=== PATIENT | male | born 1940 | race Two or more races ===

== ENCOUNTER 2019-01-13 02:02 | Inpatient (IN) | payer OTHER ==
[~2019-01-13] VITALS: Ht 172.7 cm; Wt 82.3 kg
[2019-01-13] MEDS ORDERED: SODIUM CHLORIDE 0.9% 500 ML IVB ONE (02:36)
[2019-01-13] MEDS ORDERED: MORPHINE SULFATE 4 MG/ML SYR/VIAL IV ONE (02:45)
[2019-01-13] MEDS ORDERED: ONDANSETRON HCL 4 MG/2 ML VIAL IV ONE (02:45)
[2019-01-13 02:59] LABS: Basophils # (auto) 0 uL; Basophils % (auto) 0.3 % (0.0-2.0); Eosinophils # (auto) 0 uL; Eosinophils % (auto) 0.1 % (0.0-7.0); Hematocrit 46.2 % (41.0-53.0); Lymphocytes # (auto) 0.9 uL; Lymphocytes % (auto) 6.5 % (10.0-50.0); Mean Corpuscular Hemoglobin 29.1 pg (28.0-32.0); Mean Corpuscular Hgb Conc. 32.5 g/dL (32.0-36.0); Mean Corpuscular Volume 89.6 fL (80.0-100.0); Monocytes # (auto) 0.6 uL; Monocytes % (auto) 4.1 % (0.0-12.0); Neutrophils # (auto) 12.9 uL; Nucleated Red Blood Cells % 0.1 %; Platelet Count (auto) 308 10^3/uL (140-450); Red Blood Cells 5.16 10^6/uL (4.5-5.90); White Blood Cell 14.5 10^3/uL (4.4-10.8)
[2019-01-13 03:19] LABS: Albumin 3.2 g/dL (3.4-5.0); BUN/Creatinine Ratio 11.8; Calcium 8.4 mg/dL (8.5-10.1); Potassium 3.5 mmol/L (3.5-5.1)
[2019-01-13 03:22] LABS: Bilirubin, Total 0.4 mg/dL (0.2-1.0); Total Protein 7.9 g/dL (6.4-8.2)
[2019-01-13 04:08] LABS: Urine Bacteria MANY /hpf (None Seen); Urine Blood 1+ /uL (Negative); Urine Specific Gravity 1.014 (1.001-1.035); Urine WBC 129 /hpf (0 - 3); Urine WBC Clumps PRESENT /hpf (None Seen)
[2019-01-13] MEDS ORDERED: CEFTRIAXONE SODIUM 2 GM in D5W 5% 50 ML IV ONE (06:00)
[2019-01-13] MEDS ORDERED: cefTRIAXone 1GM/50ML D5W 50 ML IV ONE ×2 (06:30)
[2019-01-13] MEDS ORDERED: MORPHINE SULF INJ 2 MG/ML SYRINGE 1ML IV PRN ×2 (08:15)
[2019-01-13] MEDS: SODIUM CHLORIDE 0.9% 1,000 ML IV SCH ×5 (08:15→16:12)
[2019-01-13] MEDS ORDERED: NITROGLYCERIN 0.4 MG SL TAB SL PRN (08:15)
[2019-01-13] MEDS ORDERED: ONDANSETRON HCL 4 MG/2 ML VIAL IV PRN (08:15)
[2019-01-13] MEDS ORDERED: ACETAMINOPHEN 500 MG TAB PO PRN (08:15)
[2019-01-13] MEDS ORDERED: DEXTROSE (50%) 50ML SYRG IV PRN ×2 (08:30→11:15)
[2019-01-13 09:16] LABS: Lactic Acid w/Reflex 3.4 mmol/L (0.4-2.0)
[2019-01-13] MEDS ORDERED: ENOXAPARIN SOD 40 MG/0.4 ML SYRINGE SC SCH (10:00)
[2019-01-13] MEDS: NYSTATIN TOPICAL CREAM 15GM TOP SCH ×2 (10:00→21:51)
[2019-01-13 10:45] VITALS: BP 138/79
[2019-01-13] MEDS: FAMOTIDINE (10MG/ML) 2ML VL IV SCH ×2 (10:58→21:52)
--- NOTE | 2019-01-13 11:03 | NUR ---
Wong POLANCO paged regarding BS 476, awaiting to call back.
--- NOTE | 2019-01-13 11:04 | NUR ---
Received a new order from Wong MARCOS, noted and carried out.
[2019-01-13] MEDS ORDERED: INSULIN LANTUS (GLARGINE) 1 /0.01ml (100units/ml) SC ONE (11:15)
[2019-01-13] MEDS ORDERED: ACCU-CHEK COMFORT CURVE STRIP VI SCH (11:30)
[2019-01-13] MEDS ORDERED: InsuLIN REG 1unit/0.01ml Soln (100units/ml) SC SCH (11:30)
--- NOTE | 2019-01-13 11:40 | NUR ---
WOUND CARE NOTE: Wound care consult received from nursing. Patient is a 78 yo male admitted for sepsis. Patient with a history of HTN, Diabetes, Parkinson's and previous pressure injury to sacrum. Patient seen with bedside RNChun. Patient is alert and denies pain. Last Zoltan score is 12. Patient states he has had previous wound to sacrum/coccyx, but unknown of stage. Skin is red/pink scar with multiple multiple small areas of deep purple discoloration measuring no larger that 1x1cm. Patient admitted with a linares and noted to have some moisture associated dermatitis to bilateral groins. Patient positioned to the right after assessment. RECOMMENDATIONS: Turn q2hrs; Dietary consult; Specialty mattress; Nursing to cleanse sacrum/coccyx area with mild soap and water, pat dry, apply thin layer of ZGUARD, cover with OPTIFOAM GENTLE dressing, change Q3days/PRN; wound care team to follow. Addendum: 01/13/19 at 1500 by EDMUNDO WOLFE RN Amended: Links added.
[2019-01-13] MEDS: ACCU-CHEK COMFORT CURVE STRIP VI SCH ×3 (11:41→19:53)
[2019-01-13] MEDS: InsuLIN REG 1unit/0.01ml Soln (100units/ml) SC SCH ×3 (11:41→19:53)
--- NOTE | 2019-01-13 11:45 | NUR ---
Telemetry admit from ER [facility] admitted to Telemetry unit after SBAR received. Patient oriented to JACKIE PERERA, primary RN, unit, room, bed, and unit policies regarding patient care and visiting hours. Patient now on continuous telemetry monitoring, tele box # 37 and telemetry reading on arrival to unit is . Patient placed on bedside oxygen, weighed by bed scale and encouraged to call if they need something. All questions and concerns addressed, patient verbalized understanding.
--- NOTE | 2019-01-13 13:59 | NUR ---
Wong POLANCO made aware of patient has DVT to right leg.
[2019-01-13] MEDS ORDERED: GASTROGRAFIN 30 ML SOL ONE (15:49)
[2019-01-13] MEDS ORDERED: IOHEXOL 300 MG/ML 100ML BOTTLE IJ ONE (15:50)
[2019-01-13] MEDS ORDERED: IOHEXOL 350 MG/ML 100ML IJ ONE (15:52)
[2019-01-13 17:19] VITALS: BP 130/72
[2019-01-13] MEDS: HYDROcodone-ACET 5/325MG TAB PO PRN ×2 (17:42→23:48)
--- NOTE | 2019-01-13 19:40 | NUR ---
OPENING NOTE Received report from day shift RN. Patient is A&O X's 4 with no s/s of distress noted. Patient reports no pain at this time. Educated patient on POC and to use call light when in need of assistance. Patient verbalized understanding. Bed is in lowest/locked position with side rails up X's 2 and call light is within reach of patient. Will continue to monitor for changes and round hourly/PRN.
[2019-01-13 21:00] VITALS: BP 117/71
[2019-01-13] MEDS: ENOXAPARIN SOD 100 MG/1 ML SYRINGE SC SCH (21:52)
--- NOTE | 2019-01-14 | NUR ---
PAGED HOSPITALIST Paged hospitalist per protocol. Blood sugar 58.
--- NOTE | 2019-01-14 | NUR ---
ROUNDS Patient's blood sugar is at 58. Patient is asymptomatic. Patient is A&O X's 4 with no s/s of distress. Patient drinking cranberry juice at this time. Will continue to monitor patient.
--- NOTE | 2019-01-14 00:01 | NUR ---
blood sugar recheck After 8 oz of cranberry juice, patient's blood sugar is at 73. Will inform hospitalist
[2019-01-14] MEDS: ACCU-CHEK COMFORT CURVE STRIP VI SCH ×4 (00:03→12:25)
[2019-01-14] MEDS: SODIUM CHLORIDE 0.9% 1,000 ML IV SCH ×2 (01:45→13:47)
[2019-01-14] MEDS: InsuLIN REG 1unit/0.01ml Soln (100units/ml) SC SCH ×4 (03:50→12:26)
[2019-01-14 05:00] VITALS: BP 137/87
[2019-01-14] MEDS: HYDROcodone-ACET 5/325MG TAB PO PRN ×2 (06:13→12:10)
[2019-01-14] MEDS ORDERED: INSULIN LANTUS (GLARGINE) 1 /0.01ml (100units/ml) SC SCH ×2 (07:00)
--- NOTE | 2019-01-14 07:45 | NUR ---
Opening Shift Note Assumed care of patient, alert and oriented x 4, no S/S of distress/SOB or pain. IV 20g to left FA patent and intact, running NS @ 100 ml/hr. Giles catheter draining to gravity noted at bedside with clear, straw colored urine. Bed in lowest locked position with side rails up x 2 for safety. Dressing changed on sacrum after patient bowel movement. Instructed on POC and to call for assist PRN, will continue to monitor for changes Q1hr and PRN. Signed: 01/14/19 at 1133 by SN YU <Co-Signature Required> Co-Signed: 01/14/19 at 1133 by Camila Mckenzie RN
[2019-01-14 07:59] LABS: Basophils # (auto) 0.1 uL; Basophils % (auto) 1.1 % (0.0-2.0); Eosinophils # (auto) 0.4 uL; Hematocrit 35.4 % (41.0-53.0); Hemoglobin 11.6 g/dL (13.5-17.5); Lymphocytes % (auto) 26.2 % (10.0-50.0); Mean Corpuscular Hemoglobin 29.3 pg (28.0-32.0); Mean Corpuscular Hgb Conc. 32.9 g/dL (32.0-36.0); Monocytes # (auto) 0.6 uL; Monocytes % (auto) 8.6 % (0.0-12.0); Neutrophils # (auto) 4.5 uL; Neutrophils % (auto) 59.1 % (37.0-80.0); Platelet Count (auto) 244 10^3/uL (140-450); Red Blood Cells 3.97 10^6/uL (4.5-5.90); Red Cell Distribution Width 13.7 % (11.8-14.3); White Blood Cell 7.5 10^3/uL (4.4-10.8)
[2019-01-14 08:14] VITALS: BP 148/91
[2019-01-14 08:14] LABS: Potassium 3.7 mmol/L (3.5-5.1)
[2019-01-14 08:22] LABS: Albumin 2.6 g/dL (3.4-5.0); Bilirubin, Total 0.3 mg/dL (0.2-1.0); Total Protein 6.3 g/dL (6.4-8.2)
[2019-01-14] MEDS ORDERED: cefTRIAXone 1GM/50ML D5W 50 ML IV SCH (09:00)
[2019-01-14] MEDS: ENOXAPARIN SOD 100 MG/1 ML SYRINGE SC SCH (10:45)
[2019-01-14] MEDS: FAMOTIDINE (10MG/ML) 2ML VL IV SCH (10:46)
--- NOTE | 2019-01-14 11:15 | NUR ---
Urology Urologist Yoselyn AMAYA at bedside discussing POC with patient for urology follow up. Signed: 01/14/19 at 1135 by SN YU <Co-Signature Required> Co-Signed: 01/14/19 at 1135 by Camila Mckenzie RN
--- NOTE | 2019-01-14 11:43 | NUR ---
NUTRITION CONSULT/ASSESSMENT NOTES Please refer to link notes of nutrition screen form filed under the intervention section of the plan of care for further details. Est. Needs: 1650 kcal to 2050 kcal (20-25 kcal/kgBW), 82 gms to 107 gms pro (1.0-1.3 gms/kgBW for wound healing). Will continue to monitor pertinent labs and reassess nutrient need prn Thank you for this consult. Addendum: 01/14/19 at [address] Amended: Links added.
[2019-01-14 12:50] VITALS: BP 153/94
[2019-01-14] MEDS: NYSTATIN TOPICAL CREAM 15GM TOP SCH (13:47)
--- NOTE | 2019-01-14 13:59 | NUR ---
I faxed home health order to [facility].
--- NOTE | 2019-01-14 14:45 | NUR ---
Per patient, he was previously on [facility]. Spoke to Guillermina with [facility], informed patient is discharged, verbalized understanding. Faxed requested information to [facility], awaiting return call with transportation and parts picker time. Spoke to Jessenia Wilson, social work instructor, informed of the above, verbalized understanding. Patient updated on plan of care, verbalized understanding.
[2019-01-14 15:09] VITALS: BP 133/84
--- NOTE | 2019-01-14 15:15 | NUR ---
Call received from Joy with [facility], informed [facility] will be picking patient up between 1600 and 1700. Patient and Jessenia Wilson, Woods Overseer informed of above, both verbalized understanding.
--- NOTE | 2019-01-14 16:11 | NUR ---
assessment Patient is a 78 year old male who is alert and oriented. Prior to admission patient informed me he lived at a room and board found by [facility] and pays 1,800.00 per month. Per patient he rents a room only. Per patient he wants to return to home on discharge. I asked patient if he would like me to find him a board and care for that weeks. Patient informed me he will stay at his room and board for now. Camila RANEGL and I informed patient of the type of care he needs at home. Patient verbalized understanding and agreed to return home to his room on discharge. Per MD order resume [facility]. Patient agrees to resumption of Hospice. MD order has been sent to [facility]. Transport set up for between 1600 and 1700 today post discharge. Addendum: 01/14/19 at 1616 by Jessenia TELLO Amended: Links added.
--- NOTE | 2019-01-14 16:14 | NUR ---
REFINERY OPERATOR HELPER Jessenia, Business Education Teacher at bedside discussing patient's discharge plan. Per patient, he would like to return to the previous living arrangements. Jessenia informed patient of his rights and supplied him with resources along with her business card. Patient verbalized understanding.
--- NOTE | 2019-01-14 16:49 | NUR ---
Discharge instructions given as ordered. Patient discharged back to the residence where he states he rents a room. [facility] to resume care. Encourage to follow up with PMD as instructed. All questions and concerns addressed. Patient verbalized understanding. Medication reconciliation form completed and copy given to patient. IV removed with catheter intact, pressure dressing applied, per order, patient discharged with Giles catheter. Telemetry unit returned to ICU. Patient transported via gurney by [facility] [employer] with all personal belongings, accompanied by transport staff. No distress noted at time of departure.
[2019-01-14 16:58] VITALS: BP 137/86
--- NOTE | 2019-01-15 15:26 | NUR ---
[facility] Eliquis 5 mg po BID #90 (per )) is called in to [facility] pharmacy at [phone] as per patient's request( [phone]).
== END 2019-01-14 17:00 | disposition hospice, home (50) | DRG 699 ==
LOC: EDBD 02:02 → ER 02:09 → TELE 08:07 → TELE-CENTR 09:51
PROVIDERS: ADMIT Nurse Practitioner Acute Care; ATTEND Hospitalist
DX: T83.091A Other mechanical complication of indwelling urethral catheter, initial encounter (principal); I82.431 Acute embolism and thrombosis of right popliteal vein; E87.2 Acidosis; E44.1 Mild protein-calorie malnutrition; J98.11 Atelectasis; N39.0 Urinary tract infection, site not specified; R65.10 Systemic inflammatory response syndrome (SIRS) of non-infectious origin without acute organ dysfunction; I82.411 Acute embolism and thrombosis of right femoral vein; E11.65 Type 2 diabetes mellitus with hyperglycemia; I10 Essential (primary) hypertension; G20 Parkinson's disease; F17.210 Nicotine dependence, cigarettes, uncomplicated; L89.159 Pressure ulcer of sacral region, unspecified stage; L25.9 Unspecified contact dermatitis, unspecified cause; K44.9 Diaphragmatic hernia without obstruction or gangrene; Y73.8 Miscellaneous gastroenterology and urology devices associated with adverse incidents, not elsewhere classified; N13.9 Obstructive and reflux uropathy, unspecified; Y92.89 Other specified places as the place of occurrence of the external cause; Z79.4 Long term (current) use of insulin; Z80.3 Family history of malignant neoplasm of breast; Z79.01 Long term (current) use of anticoagulants; Z68.27 Body mass index [BMI] 27.0-27.9, adult; Z79.899 Other long term (current) drug therapy
CPT/HCPCS: 36415; 51702; 71045; 71260; 74177; 80053; 80061; 81001; 82962; 83036; 83605; 84443; 85025; 85379; 85652; 87086; 87088; 87186; 93306; 93970; 96361; 96365; 96366; 96375; G0378; J0696; J1815; J2405; J3490; J7060

== ENCOUNTER 2019-04-03 01:01 | Emergency (ER) | payer OTHER ==
[~2019-04-03] VITALS: Ht 175.3 cm; Wt 86.2 kg
[~2019-04-03 01:01] MED LIST: APIX5TAB PO; BENA40TA7 PO; CARB25TA3 PO; FENT25DI TD; GABA300C10 PO; HYDR-4798 PO; INSU70IN3 SC; LEVO500T21 PO; LORA0.5T12 PO; QUET50TA25 PO; SERT-274 PO; TAMS0.4C36 PO; [UNRECOGNIZED DRUG - CODE]
[2019-04-03 04:07] LABS: Urine Bacteria MANY /hpf (None Seen); Urine Blood 2+ /uL (Negative); Urine Mucus FEW (None Seen); Urine WBC 522 /hpf (0 - 3); Urine WBC Clumps PRESENT /hpf (None Seen)
[2019-04-03] MEDS ORDERED: LIDOCAINE 2% (LOCAL ANESTH.) PF 5ml SDV IJ ONE (06:45)
[2019-04-03] MEDS ORDERED: cefTRIAXone W LIDOCAINE 1 GM IM IM ONE (06:45)
[2019-04-03] MEDS ORDERED: cefTRIAXone SOD 1,000 MG VL ONE (06:48)
[2019-04-03] MEDS ORDERED: KETOROLAC TROMETH 60MG/2ML VIAL ONE (09:33)
[2019-04-03] MEDS ORDERED: KETOROLAC TROMETH 60MG/2ML VIAL IM ONE (09:45)
[2019-04-03 12:02] VITALS: BP 110/62
== END 2019-04-03 11:56 | disposition home or self-care (01) ==
LOC: ER 01:01 → EDBD 01:01 → ER 06:05
DX: K52.9 Noninfective gastroenteritis and colitis, unspecified (principal); E11.9 Type 2 diabetes mellitus without complications; I10 Essential (primary) hypertension; F17.210 Nicotine dependence, cigarettes, uncomplicated
CPT/HCPCS: 81001; 96372; 99283; J0696; J1885; J2001

== ENCOUNTER 2019-06-28 04:01 | Emergency (ER) | payer OTHER ==
[~2019-06-28] VITALS: Ht 162.6 cm; Wt 54.4 kg
[~2019-06-28 04:01] MED LIST changes: -LEVO500T21 PO; -[UNRECOGNIZED DRUG - CODE]
[2019-06-28] MEDS ORDERED: HYDROcodone-ACET 10/325MG TAB PO ONE (08:45)
[2019-06-28 08:58] LABS: Urine Amorphous Crystal FEW /hpf (None Seen); Urine Bacteria MANY /hpf (None Seen); Urine Blood 2+ /uL (Negative); Urine Budding Yeast FEW /hpf (None Seen); Urine Mucus FEW (None Seen); Urine Specific Gravity 1.018 (1.001-1.035); Urine WBC 1261 /hpf (0 - 3); Urine WBC Clumps PRESENT /hpf (None Seen)
[2019-06-28] MEDS ORDERED: cefTRIAXone 1GM/50ML D5W 50 ML IV ONE (09:30)
[2019-06-28 11:55] VITALS: BP 151/91
[2019-06-28] MEDS ORDERED: HYDROcodone-ACET 5/325MG TAB PO ONE (12:15)
== END 2019-06-28 14:13 | disposition home or self-care (01) ==
LOC: ER 04:01
DX: N39.0 Urinary tract infection, site not specified (principal); G20 Parkinson's disease; I10 Essential (primary) hypertension; F17.210 Nicotine dependence, cigarettes, uncomplicated; E11.9 Type 2 diabetes mellitus without complications; Z87.440 Personal history of urinary (tract) infections; Z79.899 Other long term (current) drug therapy
CPT/HCPCS: 81001; 87086; 96365; 99283; J0696; J7030